=== PATIENT | female | born 1955 | race Caucasian/White ===

== ENCOUNTER 2023-06-01 15:42 | Emergency (ER) | payer BC ==
[2023-06-01 16:08] VITALS: TEMP 97.8; BMI 36.3
[2023-06-01 16:42] LABS: HEMATOCRIT 41.9 % (32.4-45.2); HEMOGLOBIN 14.3 G/dL (10.7-15.3); MCH 30.2 pg (25.7-33.7); MCHC 34.1 g/dl (32.0-36.0); MEAN CELL VOLUME 88.5 fl (80-96); MEAN PLT VOLUME 6.3 fl (7.5-11.1); PLATELET COUNT 189.8 10^3/uL (134-434); RBC 4.74 10^6/uL (3.60-5.2); RDW 14.3 % (11.6-15.6); WHITE BLOOD COUNT 4.5 10^3/uL (4.0-10.8)
[2023-06-01 16:49] LABS: INR 1.05 (0.83-1.09); PROTHROMBIN TIME (PATIENT) 12.2 SEC (9.7-13.0)
[2023-06-01 16:51] LABS: ACTIVATED PTT 30.9 SECONDS (25.2-36.5)
[2023-06-01 17:00] LABS: BILIRUBIN,TOTAL 0.4 mg/dl (0.2-1); BLOOD UREA NITROGEN 14.7 mg/dl (7-18); CALCIUM 9.3 mg/dl (8.5-10.1); CREATININE 0.6 mg/dl (0.6-1.3); MAGNESIUM 1.9 mg/dL (1.8-2.4); POTASSIUM 3.8 mmol/L (3.5-5.1); SGOT/AST 12.4 U/L (15-37); SGPT/ALT 15.3 U/L (7-52)
[2023-06-01 18:20] LABS: N-TERMINAL BNP 90.3 pg/ml (5-125)
[2023-06-01 18:56] LABS: PLATELET ESTIMATE ADEQUATE
[2023-06-01 20:25] VITALS: BP 151/96; PULSE 80; RESP 16
== END 2023-06-01 20:25 | disposition home or self-care (01) ==
LOC: FER 15:42
DX: R11.0 Nausea (principal); R42 Dizziness and giddiness; R07.9 Chest pain, unspecified; R00.2 Palpitations; R55 Syncope and collapse; R20.2 Paresthesia of skin
CPT/HCPCS: 36415; 71045-TC-FY; 80053; 83690; 83735; 83880; 84484; 85027; 85610; 85730; 93005; 99285-25